=== PATIENT | male | born 1945 | race Caucasian/White ===

== ENCOUNTER 2017-07-28 19:42 | Inpatient (IN) | payer MEDICARE, OTHER ==
[~2017-07-28] VITALS: Ht 177.8 cm; Wt 80.5 kg
[2017-07-28] MEDS ORDERED: INSLAN SQ (20:16)
[2017-07-28] MEDS ORDERED: INSNOV SQ (20:16)
[2017-07-28] MEDS ORDERED: SAXA2.5T PO (20:16)
[2017-07-28] MEDS ORDERED: METF500T6 PO (20:16)
[2017-07-28] MEDS ORDERED: XALA2.5OS OU (20:16)
[2017-07-28] MEDS ORDERED: DORZ210OS OU (20:16)
[2017-07-28] MEDS ORDERED: AMLO-512 PO (20:16)
[2017-07-28] MEDS ORDERED: AMIT50TA3 PO (20:16)
[2017-07-28] MEDS ORDERED: SIMV-260 PO (20:16)
[2017-07-28] MEDS ORDERED: BENZ-51 PO (20:16)
[2017-07-28] MEDS ORDERED: SODIUM CHLORIDE 0.9% 2,000 ML IV ONE (20:45)
[2017-07-28] MEDS ORDERED: INSULIN REGULAR, HUMAN 100 UNITS/ML IVP ONE (20:45)
[2017-07-28 21:17] LABS: BASOPHILS % (AUTO) 0.2 % (0.0-2.0); EOSINOPHILS % (AUTO) 0 % (1.0-6.0); HEMATOCRIT 31.9 % (41-53); HEMOGLOBIN 10.1 g/dL (13.5-17.5); LYMPHOCYTES # (AUTO) 0.6 K/uL (1.0-4.8); LYMPHOCYTES % (AUTO) 8.2 % (22.0-44.0); MEAN CORPUSCULAR HEMOGLOBIN 21.1 pg (26.0-34.0); MEAN CORPUSCULAR HGB CONC 31.8 G/dL (31.0-37.0); MEAN CORPUSCULAR VOLUME 66 fL (80-100); MONOCYTES # (AUTO) 0.6 K/uL (0.1-1.0); MONOCYTES % (AUTO) 7.4 % (2.0-9.0); NEUTROPHILS # (AUTO) 6.6 K/uL (1.8-7.7); NEUTROPHILS % (AUTO) 84.2 % (40.0-70.0); PLATELET COUNT (AUTO) 387 K/uL (150-450); RED CELL DISTRIBUTION WIDTH 19.9 % (11.5-14.5)
[2017-07-28 21:39] LABS: ALBUMIN 2.8 g/dL (3.4-5.0); ALKALINE PHOSPHATASE 109 U/L (46-116); ANION GAP 14 mmol/L (8-16); BILIRUBIN,TOTAL 1.1 mg/dL (0.1-1.0); CALCIUM, TOTAL 8.8 mg/dL (8.8-10.5); CARBON DIOXIDE 21 mmol/L (22-29); CHLORIDE 91 mmol/L (98-107); CREATININE 2.97 mg/dL (0.60-1.30); GLOMERULAR FILTR. RATE CALC 21 mL/min (>60); LIPASE 261 U/L (73-393); POTASSIUM 5.1 mmol/L (3.5-5.1); SODIUM SERUM 126 mmol/L (136-145); TOTAL PROTEIN, SERUM 8.3 g/dL (6.4-8.2); UREA NITROGEN, BLOOD 46 mg/dL (7-18)
[2017-07-28] MEDS ORDERED: ALBUTEROL SULFATE 2.5 MG/0.5 ML NEB SOLUTION NEB PRN (22:00)
[2017-07-28] MEDS ORDERED: OxyCODONE HCL/ACETAMINOPHEN 5-325 MG TABLET PO PRN (22:00)
[2017-07-28] MEDS ORDERED: BISACODYL 10 MG RECTAL RECTAL SUPPOSITORY PR PRN (22:00)
[2017-07-28] MEDS ORDERED: DEXTROSE 50%-WATER 25 GM/50 ML SYRINGE IVP PRN (22:00)
[2017-07-28] MEDS ORDERED: SODIUM CHLORIDE 0.9% 1,000 ML IV ONE (22:00)
[2017-07-28] MEDS ORDERED: ONDANSETRON HCL 4 MG/2 ML VIAL IVP PRN (22:00)
[2017-07-28] MEDS ORDERED: ACETAMINOPHEN 325 MG TABLET PO PRN (22:00)
[2017-07-28 22:01] LABS: ACETONE,BLOOD NEGATIVE (NEGATIVE)
[2017-07-28 22:12] LABS: GLUCOSE,RANDOM 500 mg/dL (70-110)
[2017-07-28 22:13] LABS: ALANINE AMINOTRANSFERASE 1791 U/L (12-78); ASPARTATE AMINOTRANSFERASE 2798 U/L (15-37)
[2017-07-28] MEDS ORDERED: ASPIRIN 325 MG TABLET PO ONE (22:30)
[2017-07-28] MEDS ORDERED: METOPROLOL TARTRATE 5 MG/5 ML VIAL IVP ONE (22:30)
[2017-07-28 23:24] LABS: CREATINE KINASE MB 151.1 ng/mL (0-5)
[2017-07-28 23:25] LABS: CKMB RELATIVE INDEX 6.2 % (0.0-4.0)
[2017-07-28] MEDS ORDERED: HEPARIN SODIUM 25000 UNITS/D5W 250 ML IV PRN (23:30)
[2017-07-28 23:43] LABS: GLUCOSE,POINT OF CARE 366 MG/DL (70-110)
[2017-07-28] MEDS ORDERED: HEPARIN SODIUM,PORCINE 5,000 UNITS/ML VIAL IVP PRN ×2 (23:45)
[2017-07-29] VITALS (8 sets, daily range): BP systolic 91–122; BP diastolic 45–63
[2017-07-29] MEDS ORDERED: HEPARIN SODIUM,PORCINE 5,000 UNITS/ML VIAL SQ SCH ×2
[2017-07-29 00:01] LABS: INR 1.3 (0.9-1.1); PROTHROMBIN TIME 13.4 SEC (9.4-11.6)
[2017-07-29 00:58] LABS: GLUCOSE,POINT OF CARE 344 MG/DL (70-110)
[2017-07-29] MEDS ORDERED: HEPARIN SODIUM,PORCINE 5,000 UNITS/ML VIAL IVP PRN ×4 (02:47→10:15)
[2017-07-29] MEDS: INSULIN LISPRO 100 UNITS/ML SQ PRN ×4 (05:41→21:03)
[2017-07-29 05:53] LABS: GLUCOSE,POINT OF CARE 330 MG/DL (70-110)
[2017-07-29] MEDS: PANTOPRAZOLE SODIUM 40 MG DR TABLET PO SCH (08:11)
[2017-07-29] MEDS: DOCUSATE SODIUM 100 MG CAPSULE PO SCH ×2 (08:11→21:03)
[2017-07-29] MEDS ORDERED: LOPERAMIDE HCL 2 MG CAPSULE PO PRN (08:30)
[2017-07-29 09:08] LABS: BASOPHILS % (AUTO) 0.2 % (0.0-2.0); EOSINOPHILS % (AUTO) 0 % (1.0-6.0); HEMOGLOBIN 9.4 g/dL (13.5-17.5); LYMPHOCYTES # (AUTO) 0.7 K/uL (1.0-4.8); LYMPHOCYTES % (AUTO) 6.8 % (22.0-44.0); MEAN CORPUSCULAR HEMOGLOBIN 20.5 pg (26.0-34.0); MEAN CORPUSCULAR HGB CONC 31.4 G/dL (31.0-37.0); MEAN CORPUSCULAR VOLUME 65 fL (80-100); MONOCYTES # (AUTO) 0.9 K/uL (0.1-1.0); MONOCYTES % (AUTO) 9.2 % (2.0-9.0); NEUTROPHILS # (AUTO) 8.4 K/uL (1.8-7.7); NEUTROPHILS % (AUTO) 83.8 % (40.0-70.0); PLATELET COUNT (AUTO) 378 K/uL (150-450); RED BLOOD CELL COUNT(AUTO) 4.59 MIL/uL (4.50-5.90); RED CELL DISTRIBUTION WIDTH 19.5 % (11.5-14.5)
[2017-07-29 09:30] LABS: ALBUMIN 2.4 g/dL (3.4-5.0); CALCIUM, TOTAL 7.7 mg/dL (8.8-10.5); CREATININE 2.51 mg/dL (0.60-1.30); POTASSIUM 4.4 mmol/L (3.5-5.1); TOTAL PROTEIN, SERUM 7.1 g/dL (6.4-8.2)
[2017-07-29] MEDS: CARVEDILOL 3.125 MG TABLET PO SCH ×2 (09:33→20:54)
[2017-07-29 10:44] LABS: CREATINE KINASE MB 105.4 ng/mL (0-5); MAGNESIUM 2.1 mg/dL (1.80-2.40); PHOSPHORUS 4.1 mg/dL (2.5-4.9)
[2017-07-29 10:45] LABS: CKMB RELATIVE INDEX 5.7 % (0.0-4.0)
[2017-07-29 11:09] LABS: HEMOGLOBIN A1C 9.1 % (4.5-6.2)
[2017-07-29 17:09] LABS: CREATININE,URINE RANDOM 172.5 mg/dL (30.0-125.0); SODIUM,URINE RANDOM 19 mmol/l (20-110); UREA NITROGEN,URINE RANDOM 864 mg/dL (350-1000)
[2017-07-29 17:42] LABS: APPEARANCE,URINE CLOUDY (CLEAR); GLUCOSE, URINE (UA) NEGATIVE (NEGATIVE); KETONES,URINE TRACE mg/dL (NEGATIVE); LEUKOCYTE ESTERASE ,URINE NEGATIVE (NEGATIVE); NITRATE,URINE NEGATIVE (NEGATIVE); OCCULT BLOOD,URINE LARGE (NEGATIVE); PROTEIN,URINE SEE CONFIRM (NEGATIVE)
[2017-07-29 17:43] LABS: BILIRUBIN,URINE PRELIM. POSITIVE (NEGATIVE)
[2017-07-29 18:59] LABS: SULFOSALICYLIC ACID,URINE 2+ (Negative)
[2017-07-29] MEDS: HEPARIN SODIUM 25000 UNITS/D5W 250 ML IV PRN (19:01)
[2017-07-29 19:02] LABS: BACTERIA,URINE Moderate /HPF (None Seen); RBC,URINE 0-2 /HPF (0-2); SQUAMOUS EPITHELIAL CELL,UR Rare /LPF (None Seen); WBC,URINE 0-2 /HPF (0-5)
[2017-07-29 19:03] LABS: AMORPHOUS SEDIMENT,UR Few /LPF (None Seen); MUCUS,URINE Few LPF (None Seen)
[2017-07-29 19:12] LABS: GLUCOSE,POINT OF CARE 285 MG/DL (70-110)
[2017-07-30] VITALS: BP 120/53
[2017-07-30 00:39] LABS: GLUCOSE,POINT OF CARE 281 MG/DL (70-110)
[2017-07-30 00:39] LABS: GLUCOSE,POINT OF CARE 277 MG/DL (70-110)
[2017-07-30 04:00] VITALS: BP 125/35
[2017-07-30] MEDS: INSULIN LISPRO 100 UNITS/ML SQ PRN ×4 (06:03→20:37)
[2017-07-30 07:17] LABS: GLUCOSE,POINT OF CARE 190 MG/DL (70-110)
[2017-07-30 07:55] LABS: CALCIUM, TOTAL 7.5 mg/dL (8.8-10.5); CREATININE 2.4 mg/dL (0.60-1.30)
[2017-07-30 08:00] VITALS: BP 111/41
[2017-07-30] MEDS: CARVEDILOL 3.125 MG TABLET PO SCH ×2 (08:34→20:15)
[2017-07-30] MEDS: PANTOPRAZOLE SODIUM 40 MG DR TABLET PO SCH (08:34)
[2017-07-30] MEDS: ASPIRIN 81 MG CHEWABLE TABLET PO SCH (08:35)
[2017-07-30] MEDS: DOCUSATE SODIUM 100 MG CAPSULE PO SCH ×2 (08:35→20:35)
[2017-07-30] MEDS: HEPARIN SODIUM 25000 UNITS/D5W 250 ML IV PRN ×2 (08:40→21:56)
[2017-07-30 12:00] VITALS: BP 118/74
[2017-07-30 16:00] VITALS: BP 81/47
[2017-07-30 16:08] LABS: GLUCOSE,POINT OF CARE 188 MG/DL (70-110)
[2017-07-30 20:00] VITALS: BP 98/64
[2017-07-31] VITALS: BP 103/46
[2017-07-31 04:00] VITALS: BP 116/55
[2017-07-31] MEDS: INSULIN LISPRO 100 UNITS/ML SQ PRN ×2 (04:37→20:07)
[2017-07-31 05:52] LABS: CALCIUM, TOTAL 7.4 mg/dL (8.8-10.5); CREATININE 2.02 mg/dL (0.60-1.30); MAGNESIUM 2.1 mg/dL (1.80-2.40); PHOSPHORUS 4.3 mg/dL (2.5-4.9); POTASSIUM 3.8 mmol/L (3.5-5.1)
[2017-07-31 08:00] VITALS: BP 114/54
[2017-07-31 08:19] LABS: GLUCOSE,POINT OF CARE 165 MG/DL (70-110)
[2017-07-31 08:19] LABS: GLUCOSE,POINT OF CARE 196 MG/DL (70-110)
[2017-07-31 08:19] LABS: GLUCOSE,POINT OF CARE 189 MG/DL (70-110)
[2017-07-31] MEDS: DOCUSATE SODIUM 100 MG CAPSULE PO SCH (08:52)
[2017-07-31] MEDS: ASPIRIN 81 MG CHEWABLE TABLET PO SCH (08:52)
[2017-07-31] MEDS: CARVEDILOL 3.125 MG TABLET PO SCH (08:53)
[2017-07-31] MEDS: PANTOPRAZOLE SODIUM 40 MG DR TABLET PO SCH (08:53)
[2017-07-31] MEDS: HEPARIN SODIUM 25000 UNITS/D5W 250 ML IV PRN (08:54)
[2017-07-31 12:00] VITALS: BP 103/56
[2017-07-31 16:00] VITALS: BP 95/49
[2017-07-31 20:33] LABS: GLUCOSE,POINT OF CARE 239 MG/DL (70-110)
== END 2017-07-31 20:20 | disposition home health service (06) | DRG 280 ==
LOC: EMS 19:43 → ICU 23:39
PROVIDERS: ADMIT Internal Medicine; ATTEND Internal Medicine
DX: I21.4 Non-ST elevation (NSTEMI) myocardial infarction (principal); E43 Unspecified severe protein-calorie malnutrition; C64.9 Malignant neoplasm of unspecified kidney, except renal pelvis; N18.4 Chronic kidney disease, stage 4 (severe); E87.1 Hypo-osmolality and hyponatremia; B17.9 Acute viral hepatitis, unspecified; N17.9 Acute kidney failure, unspecified; C78.7 Secondary malignant neoplasm of liver and intrahepatic bile duct; I12.9 Hypertensive chronic kidney disease with stage 1 through stage 4 chronic kidney disease, or unspecified chronic kidney disease; W19.XXXA Unspecified fall, initial encounter; E78.00 Pure hypercholesterolemia, unspecified; E11.22 Type 2 diabetes mellitus with diabetic chronic kidney disease; E11.65 Type 2 diabetes mellitus with hyperglycemia; D64.9 Anemia, unspecified; I25.5 Ischemic cardiomyopathy; E78.5 Hyperlipidemia, unspecified; I25.2 Old myocardial infarction; Z79.4 Long term (current) use of insulin; Z88.8 Allergy status to other drugs, medicaments and biological substances; Z80.9 Family history of malignant neoplasm, unspecified; Y92.009 Unspecified place in unspecified non-institutional (private) residence as the place of occurrence of the external cause; Z87.891 Personal history of nicotine dependence
CPT/HCPCS: 76770; 82570; 83036; 83735; 84100; 84300; 84540; 87081; 87086; 93005; 93306; 96374; 99291; J1644; J1815; J7030